=== PATIENT | female | born 1935 | race African-American/Black ===

== ENCOUNTER 2018-02-25 14:31 | Inpatient (IN) | payer MEDICARE, OTHER ==
[~2018-02-25] VITALS: Ht 167.6 cm; Wt 72.6 kg
[~2018-02-25 14:31] MED LIST: ACET1TAB14 PO; AMLO-79 PO; LORA-249 PO; METO5TAB86 PO
[2018-02-25] MEDS ORDERED: MORPHINE SULFATE 4 MG/ML CPJ (NOT FOR IM USE) IV STA (15:23)
[2018-02-25] MEDS ORDERED: ONDANSETRON HCL 4MG/2ML INJ IV STA (15:23)
[2018-02-25] MEDS ORDERED: SODIUM CHLORIDE 0.9% 1,000 ML IV ONE (15:23)
[2018-02-25 16:34] LABS: BASOPHILS % 0.8 % (0.0-2.0); EOSINOPHILS % 0.3 % (0.0-5.0); HEMATOCRIT. 33.8 % (36.0-48.0); HEMOGLOBIN. 10.4 g/dL (12.0-16.0); LYMPHOCYTES % 20.1 % (20.0-50.0); MEAN CORPUSCULAR HEMOGLOBIN 24.3 pg (28.0-32.0); MEAN CORPUSCULAR VOLUME 78.7 fL (81.0-99.0); MEAN PLATELET VOLUME 10.2 fl (7.4-10.4); MONOCYTES % 8.9 % (2.0-8.0); NEUTROPHILS % 69.9 % (40.0-76.0); PLATELET 170 x1000/uL (130-400); RED BLOOD CELL COUNT 4.29 mill/uL (4.2-5.4); RED CELL DISTRIBUTION WIDTH 20.2 % (11.6-14.6)
[2018-02-25 16:37] LABS: CHLORIDE 107 mEq/L (98-107)
[2018-02-25 16:45] LABS: PARTIAL THROMBOPLASTIN TIME 24.3 sec (23.4-31.0); PROTHROMBIN TIME 10.3 sec (9.1-11.1)
[2018-02-25] MEDS ORDERED: POTASSIUM CHLORIDE 20MEQ TABLET SR PO ONE (17:00)
[2018-02-25] MEDS ORDERED: ASPIRIN 325MG EC TABLET PO ONE (17:45)
[2018-02-25] MEDS ORDERED: SIMV40TA5 PO (21:19)
[2018-02-25 21:30] VITALS: BP 212/79
[2018-02-25] MEDS ORDERED: IPRATROPIUM/ALBUTEROL 0.5-3(2.5)MG/3ML NEB HHN PRN (22:30)
[2018-02-25] MEDS ORDERED: ACETAMINOPHEN 325MG TABLET PO PRN (22:30)
[2018-02-25] MEDS: HYDROCODONE/ACETAMINOPHEN 5/325MG TABLET PO PRN (22:59)
[2018-02-26] VITALS: BP 143/61
[2018-02-26] MEDS: PANTOPRAZOLE 40MG DR TABLET PO SCH (06:31)
[2018-02-26 07:13] LABS: CHLORIDE 108 mEq/L (98-107)
[2018-02-26 07:24] LABS: BASOPHILS % 0.8 % (0.0-2.0); EOSINOPHILS % 0.6 % (0.0-5.0); HEMATOCRIT. 32.7 % (36.0-48.0); HEMOGLOBIN. 9.9 g/dL (12.0-16.0); LYMPHOCYTES % 20.2 % (20.0-50.0); MEAN CORPUSCULAR HEMOGLOBIN 24.3 pg (28.0-32.0); MEAN PLATELET VOLUME 10.5 fl (7.4-10.4); MONOCYTES % 10.1 % (2.0-8.0); NEUTROPHILS % 68.3 % (40.0-76.0); PLATELET 151 x1000/uL (130-400); RED BLOOD CELL COUNT 4.09 mill/uL (4.2-5.4); RED CELL DISTRIBUTION WIDTH 20.7 % (11.6-14.6)
[2018-02-26 07:33] LABS: LDL CHOLESTEROL 116 mg/dL (5-100)
[2018-02-26 07:35] LABS: HDL CHOLESTEROL 66 mg/dL (40-59)
[2018-02-26 08:00] VITALS: BP 165/67
[2018-02-26] MEDS: ENOXAPARIN 40MG/0.4ML SYR SUBCUT SCH (08:09)
[2018-02-26] MEDS: CLONIDINE 0.1MG TABLET PO PRN (09:27)
[2018-02-26] MEDS ORDERED: METOPROLOL TARTRATE 25MG TABLET PO NR (11:15)
[2018-02-26] MEDS: HYDROCODONE/ACETAMINOPHEN 5/325MG TABLET PO PRN ×2 (11:31→18:20)
[2018-02-26 12:00] VITALS: BP 132/61
[2018-02-26 12:29] LABS: BG BASE EXCESS -0.7 mmol/L (-2.0-2.0); BG CARBOXYHEMOGLOBIN 0.5 % (0.5-1.5); BG DEOXYHEMOGLOBIN 4.5 % (0.0-5.0); BG FRACTION INSPIRED OXYGEN 21; BG HCO3 ACT 23.7 mmol/L (22.0-26.0); BG METHEMOGLOBIN 0.1 % (0.0-1.5); BG OXYGEN SATURATION 95.5 % (92.0-98.5); BG OXYHEMOGLOBIN 94.9 % (94.0-97.0); BG PCO2 37.8 mmHg (35.0-45.0); BG PH 7.415 (7.350-7.450); BG PO2 80.1 mmHg (75.0-100.0); BG SAMPLE SITE LEFT BRACHIAL; BG TOTAL HEMOGLOBIN 9.7 g/dL (12.0-18.0); BG VENT MODE ROOM AIR
[2018-02-26] MEDS ORDERED: LIDOCAINE HCL/PF 1% 2ML VIAL ONE (14:27)
[2018-02-26] MEDS ORDERED: GUAIFENESIN 200MG/10ML SUGAR FREE UDC PO PRN (15:45)
[2018-02-26] MEDS: AZITHROMYCIN 500 MG TABLET PO SCH (18:21)
[2018-02-26 20:00] VITALS: BP 139/61
[2018-02-26] MEDS: GUAIFENESIN 600MG ER TABLET PO SCH (20:37)
[2018-02-26] MEDS: METOPROLOL TARTRATE 25MG TABLET PO SCH (20:38)
[2018-02-26] MEDS ORDERED: ATORVASTATIN CALCIUM 40MG TABLET PO SCH (21:00)
[2018-02-27] VITALS: BP 161/69
[2018-02-27] MEDS: CLONIDINE 0.1MG TABLET PO PRN ×2 (00:42→18:39)
[2018-02-27] MEDS: HYDROCODONE/ACETAMINOPHEN 5/325MG TABLET PO PRN ×2 (00:44→08:39)
[2018-02-27 01:01] LABS: CLARITY URINE CLOUDY (CLEAR); COLOR URINE YELLOW (YELLOW); KETONES URINE TRACE (NEGATIVE); LEUKOCYTE ESTERASE URINE 2+ (NEGATIVE); NITRITE URINE NEGATIVE (NEGATIVE); OCCULT BLOOD URINE TRACE (NEGATIVE); PROTEIN URINE NEGATIVE (NEGATIVE); SPECIFIC GRAVITY URINE 1.024 (1.005-1.030); UROBILINOGEN URINE 0.2 E.U./dL (0.2-1.0)
[2018-02-27 01:12] LABS: *AMPHETAMINES SCREEN URINE NEGATIVE (NEGATIVE); *BARBITURATES SCREEN URINE NEGATIVE (NEGATIVE); *BENZODIAZEPINES SCREEN URINE NEGATIVE (NEGATIVE); *COCAINE SCREEN URINE NEGATIVE (NEGATIVE); METHADONE URINE SCREEN NEGATIVE (NEGATIVE)
[2018-02-27 01:13] LABS: CANNABINOID URINE SCREEN NEGATIVE (NEGATIVE); OPIATES URINE SCREEN PRESUMTIVE POSITIVE (NEGATIVE); PHENCYCLIDINE URINE SCREEN NEGATIVE (NEGATIVE)
[2018-02-27 04:00] VITALS: BP 162/74
[2018-02-27] MEDS: PANTOPRAZOLE 40MG DR TABLET PO SCH (06:34)
[2018-02-27 06:55] LABS: HEMATOCRIT 29.6 % (36.0-48.0); HEMOGLOBIN 9.1 g/dL (12.0-16.0); MEAN CORPUSCULAR HEMOGLOBIN 24.5 pg (28.0-32.0); MEAN CORPUSCULAR VOLUME 79.2 fL (81.0-99.0); PLATELET 139 x1000/uL (130-400); RED BLOOD CELL COUNT 3.74 mill/uL (4.2-5.4); RED CELL DISTRIBUTION WIDTH 20.7 % (11.6-14.6)
[2018-02-27 08:01] VITALS: BP 163/60
[2018-02-27 08:04] LABS: CHLORIDE 108 mEq/L (98-107)
[2018-02-27] MEDS: GUAIFENESIN 600MG ER TABLET PO SCH (08:35)
[2018-02-27] MEDS: AZITHROMYCIN 500 MG TABLET PO SCH (08:35)
[2018-02-27] MEDS: METOPROLOL TARTRATE 25MG TABLET PO SCH (08:36)
[2018-02-27] MEDS: ENOXAPARIN 40MG/0.4ML SYR SUBCUT SCH (08:38)
[2018-02-27] MEDS ORDERED: ASPIRIN 81MG TABLET PO SCH (09:00)
[2018-02-27] MEDS ORDERED: AMLODIPINE 5MG TABLET PO SCH (11:15)
[2018-02-27 11:41] VITALS: BP 153/60
[2018-02-27] MEDS ORDERED: LEVOFLOXACIN 500MG PREMIX 100 ML IV SCH (13:00)
[2018-02-27 14:08] LABS: TOTAL IRON BINDING CAPACITY 376 ug/dL (250-450)
[2018-02-27 16:02] VITALS: BP 181/64
[2018-02-27 18:17] VITALS: BP 159/65
== END 2018-02-27 19:30 | disposition home or self-care (01) | DRG 191 ==
LOC: ER 14:31 → 6WST 18:00 → EDBEDREQ 18:01 → ENRESERV 19:39
PROVIDERS: ADMIT Internal Medicine; ATTEND Internal Medicine
DX: J44.1 Chronic obstructive pulmonary disease with (acute) exacerbation (principal); C94.6 Myelodysplastic disease, not elsewhere classified; N39.0 Urinary tract infection, site not specified; I16.0 Hypertensive urgency; J06.9 Acute upper respiratory infection, unspecified; I11.9 Hypertensive heart disease without heart failure; M54.30 Sciatica, unspecified side; R73.9 Hyperglycemia, unspecified; E66.9 Obesity, unspecified; E86.0 Dehydration; E78.5 Hyperlipidemia, unspecified; D64.9 Anemia, unspecified; R07.89 Other chest pain; Z87.891 Personal history of nicotine dependence; Z85.3 Personal history of malignant neoplasm of breast; Z90.11 Acquired absence of right breast and nipple; Z98.84 Bariatric surgery status; Z90.3 Acquired absence of stomach [part of]; Z88.0 Allergy status to penicillin; Z68.25 Body mass index [BMI] 25.0-25.9, adult; Z79.899 Other long term (current) drug therapy
CPT/HCPCS: 36415; 36600; 71045; 71250; 78582; 80048; 80061; 80305; 82375; 82805; 83036; 83540; 83550; 83880; 84484; 85027; 85379; 86850; 86900; 87077; 87186; 93005; 93306; 93970; 96361; 96374; 96375; 99285; A9558; J1650; J1956; J2270; J2405; J3490; J7030

== ENCOUNTER 2023-07-02 11:20 | Inpatient (IN) | payer MEDICARE ==
[~2023-07-02] VITALS: Ht 162.6 cm; Wt 66.7 kg
[~2023-07-02 11:20] MED LIST changes: +AMLO-138 PO; -AMLO-79 PO; +APIX2.5T MT; +APIX5TAB MT; +FURO40TA5 PO; +MED4 MT; +METO-411 PO; -METO5TAB86 PO; +OMEP20CA14 PO; +SIMV-43 PO
[2023-07-02 12:50] LABS: HEMOGLOBIN. 7.3 g/dL (12.0-16.0); MEAN CORPUSCULAR HGB CONC 29.1 g/dL (31.0-37.0); MEAN CORPUSCULAR VOLUME 72.3 fL (81.0-99.0); MEAN PLATELET VOLUME 10.6 fl (7.4-10.4); PLATELET 250 x1000/uL (130-400); RED BLOOD CELL COUNT 3.46 mill/uL (4.2-5.4); WHITE BLOOD COUNT 9.7 x1000/uL (4.5-11.0)
[2023-07-02 12:51] LABS: DIFFERENTIAL COMMENT 1
[2023-07-02 12:54] LABS: INR 1.1; PROTHROMBIN TIME 12.1 sec (9.6-11.0)
[2023-07-02 12:55] LABS: CHLORIDE 102 mEq/L (98-107); POTASSIUM 5.9 mEq/L (3.5-5.1); SODIUM 134 mEq/L (136-145)
[2023-07-02 12:56] LABS: CALCIUM 9.6 mg/dL (8.7-10.4); CARBON DIOXIDE 22 mEq/L (21-32)
[2023-07-02 13:01] LABS: CREATININE 0.7 mg/dL (0.6-1.0); GLUCOSE 126 mg/dL (70-105); UREA NITROGEN BLOOD 11 mg/dL (9-23)
[2023-07-02 13:03] LABS: CREATINE KINASE 292 IU/L (34-145)
[2023-07-02 13:05] LABS: LACTIC ACID 2.2 mmol/L (0.4-2.0)
[2023-07-02 13:07] LABS: TROPONIN I HIGH SENSITIVITY 432 ng/L (3.0-34)
[2023-07-02] MEDS: ACETAMINOPHEN 325MG TABLET PO ONE (13:57)
[2023-07-02] MEDS: CEFTRIAXONE 1GM/50ML 50 ML IV ONE (13:57)
[2023-07-02] MEDS: SODIUM CHLORIDE 0.9% 1000ML BAG (SEPSIS BOLUS) IV ONE (13:58)
[2023-07-02 14:35] LABS: NUCLEATED RED BLOOD CELLS 2 /100 WBC
[2023-07-02 14:59] LABS: ANISOCYTOSIS 3+; PLATELET ESTIMATE NORMAL
[2023-07-02 15:00] LABS: HYPOCHROMASIA 1+; MICROCYTOSIS 2+
[2023-07-02] MEDS ORDERED: FUROSEMIDE 100MG/10ML VIAL IV NR (16:09)
[2023-07-02] MEDS: INSULIN REGULAR (HUMULIN R) 300UNITS/3ML VIAL IV NR (16:15)
[2023-07-02 16:35] LABS: ALANINE AMINOTRANSFERASE 12 IU/L (10-49); ASPARTATE AMINOTRANSFERASE 69 IU/L (<34); BILIRUBIN DIRECT 0.2 mg/dL (<=3.0); BILIRUBIN TOTAL 0.7 mg/dL (0.1-1.0); PROTEIN TOTAL 6.8 g/dL (6.0-8.3)
[2023-07-02] MEDS: FUROSEMIDE 40MG/4ML VIAL IV NR (17:08)
[2023-07-02] MEDS: ASPIRIN 325MG EC TABLET PO NR (17:08)
[2023-07-02] MEDS: SODIUM POLYSTYRENE SULFONATE 15 G/60 ML BOT PO NR (17:08)
[2023-07-02] MEDS: CALCIUM CHLORIDE 1GM/10ML SYR IV NR (17:09)
[2023-07-02] MEDS: SODIUM BICARBONATE 8.4% 1 MEQ/ML 50ML SYR IV NR (17:09)
[2023-07-02] MEDS: DEXTROSE 50% WATER 50ML SYRINGE IV NR (17:09)
[2023-07-02 17:55] VITALS: PULSE 114; RESP 24
[2023-07-02] MEDS: ALBUTEROL (0.083%) 2.5MG/3ML NEB HHN NR (17:55)
[2023-07-02 18:03] LABS: CLARITY URINE TURBID (CLEAR); COLOR URINE YELLOW (YELLOW); GLUCOSE URINE NEGATIVE (NEGATIVE); KETONES URINE 1+ (NEGATIVE); LEUKOCYTE ESTERASE URINE 2+ (NEGATIVE); NITRITE URINE POSITIVE (NEGATIVE); OCCULT BLOOD URINE TRACE (NEGATIVE); PH URINE 5.5 (4.5-8.0); PROTEIN URINE TRACE (NEGATIVE); SPECIFIC GRAVITY URINE 1.019 (1.005-1.030); UROBILINOGEN URINE 0.2 E.U./dL (0.2-1.0)
[2023-07-02] MEDS: ENOXAPARIN 80MG/0.8ML SYR SUBCUT SCH (18:30)
[2023-07-02 19:08] LABS: BACTERIA URINE 3+; SQUAMOUS EPITHELIAL CELL URINE 1+ /lpf (RARE/1+)
[2023-07-02 19:09] LABS: RBC URINE 0-2 /hpf (0-2); WBC URINE 25-50 /hpf (0-2)
[2023-07-02 20:00] VITALS: BP 156/72; PULSE 88; RESP 18; TEMP 98.7
[2023-07-03] VITALS: BP 163/57; PULSE 86; RESP 17; TEMP 97.5
[2023-07-03 04:00] VITALS: BP 156/75; PULSE 88; RESP 18; TEMP 97.6
[2023-07-03] MEDS ORDERED: IPRATROPIUM/ALBUTEROL 0.5-3(2.5)MG/3ML NEB HHN PRN (07:45)
[2023-07-03 08:00] VITALS: BP 138/56; PULSE 101; RESP 18; TEMP 98.1
[2023-07-03] MEDS ORDERED: NALOXONE HCL 0.4MG/ML VIAL IV PRN (08:00)
[2023-07-03] MEDS: ASPIRIN 81MG EC TABLET PO SCH (08:35)
[2023-07-03 11:02] LABS: CARBON DIOXIDE 23 mEq/L (21-32); CHLORIDE 104 mEq/L (98-107); POTASSIUM 3.9 mEq/L (3.5-5.1); SODIUM 134 mEq/L (136-145)
[2023-07-03 11:07] LABS: CREATININE 0.6 mg/dL (0.6-1.0)
[2023-07-03 11:08] LABS: GLUCOSE 122 mg/dL (70-105); UREA NITROGEN BLOOD 6 mg/dL (9-23)
[2023-07-03 11:09] LABS: ALANINE AMINOTRANSFERASE < 7 IU/L (10-49); ALBUMIN 3.1 g/dL (3.2-4.8); ASPARTATE AMINOTRANSFERASE 24 IU/L (<34)
[2023-07-03 11:10] LABS: BILIRUBIN TOTAL 0.6 mg/dL (0.1-1.0); CREATINE KINASE 85 IU/L (34-145); PROTEIN TOTAL 5.5 g/dL (6.0-8.3)
[2023-07-03 11:29] LABS: TROPONIN I HIGH SENSITIVITY 390 ng/L (3.0-34)
[2023-07-03] MEDS: HYDROCODONE/ACETAMINOPHEN 5/325MG TABLET PO PRN (11:59)
[2023-07-03 12:00] VITALS: BP 140/65; PULSE 108; RESP 18; TEMP 97.8
[2023-07-03] MEDS: FUROSEMIDE 40MG/4ML VIAL IVP SCH (13:15)
[2023-07-03] MEDS: CEFTRIAXONE 1GM/50ML 50 ML IV SCH (13:18)
[2023-07-03 16:00] VITALS: BP 149/80; PULSE 114; RESP 18; TEMP 97.6
[2023-07-03 16:30] LABS: MEAN CORPUSCULAR HEMOGLOBIN 21.7 pg (28.0-32.0); MEAN CORPUSCULAR HGB CONC 30.3 g/dL (31.0-37.0); MEAN CORPUSCULAR VOLUME 71.7 fL (81.0-99.0); MEAN PLATELET VOLUME 10.5 fl (7.4-10.4); PLATELET 201 x1000/uL (130-400); RED BLOOD CELL COUNT 3.03 mill/uL (4.2-5.4); RED CELL DISTRIBUTION WIDTH 23.2 % (11.6-14.6); WHITE BLOOD COUNT 8.1 x1000/uL (4.5-11.0)
[2023-07-03 16:31] LABS: DIFFERENTIAL COMMENT 1
[2023-07-03 16:37] LABS: HEMATOCRIT. 21.8 % (36.0-48.0); HEMOGLOBIN. 6.6 g/dL (12.0-16.0)
[2023-07-03 17:12] LABS: HYPOCHROMASIA 2+; MICROCYTOSIS 2+; PLATELET ESTIMATE NORMAL
[2023-07-03 17:13] LABS: ANISOCYTOSIS 2+
[2023-07-03 20:00] VITALS: BP 136/55; PULSE 60; RESP 18; TEMP 99.3
[2023-07-03] MEDS: CARVEDILOL 3.125 MG TABLET PO SCH (21:15)
[2023-07-04] VITALS (12 sets, daily range): BP systolic 114–145; BP diastolic 53–69; PULSE 81–104; RESP 17–20; TEMP 97.1–98.1
[2023-07-04] MEDS: ACETAMINOPHEN 325MG TABLET PO PRN (07:41)
[2023-07-04] MEDS: PANTOPRAZOLE SODIUM 40 MG/VIAL IV SCH (10:45)
[2023-07-04 12:49] LABS: HEMATOCRIT. 27.1 % (36.0-48.0); MEAN CORPUSCULAR HEMOGLOBIN 22.1 pg (28.0-32.0); MEAN CORPUSCULAR HGB CONC 29.7 g/dL (31.0-37.0); MEAN CORPUSCULAR VOLUME 74.2 fL (81.0-99.0); MEAN PLATELET VOLUME 10.4 fl (7.4-10.4); PLATELET 160 x1000/uL (130-400); RED BLOOD CELL COUNT 3.65 mill/uL (4.2-5.4); RED CELL DISTRIBUTION WIDTH 23.2 % (11.6-14.6); WHITE BLOOD COUNT 7.3 x1000/uL (4.5-11.0)
[2023-07-04 12:55] LABS: DIFFERENTIAL COMMENT 1
[2023-07-04 13:33] LABS: CHLORIDE 103 mEq/L (98-107); POTASSIUM 3.1 mEq/L (3.5-5.1); SODIUM 135 mEq/L (136-145)
[2023-07-04 13:34] LABS: CARBON DIOXIDE 25 mEq/L (21-32)
[2023-07-04 13:35] LABS: CALCIUM 8.6 mg/dL (8.7-10.4)
[2023-07-04 13:39] LABS: CREATININE 0.7 mg/dL (0.6-1.0); GLUCOSE 106 mg/dL (70-105); IRON 269 ug/dL (50-170); UREA NITROGEN BLOOD 10 mg/dL (9-23)
[2023-07-04 13:42] LABS: TOTAL IRON BINDING CAPACITY 230 ug/dl (250-425)
[2023-07-04] MEDS: POTASSIUM CHLORIDE 20MEQ TABLET SR PO NR (15:00)
[2023-07-04 15:39] LABS: ANISOCYTOSIS 2+; HYPOCHROMASIA 1+; MICROCYTOSIS 2+; PLATELET ESTIMATE NORMAL
[2023-07-04 16:12] LABS: FOLIC ACID (FOLATE) SERUM > 20.00 ng/mL (>5.38); VITAMIN B12 SERUM 874 pg/mL (211-911)
[2023-07-04 16:13] LABS: FERRITIN 9 ng/mL (10-291)
[2023-07-05] VITALS: BP 152/90; PULSE 99; RESP 17; TEMP 97.5
[2023-07-05] MEDS: MAGNESIUM 4 G PREMIX 100 ML IV NR (01:35)
[2023-07-05 04:00] VITALS: BP 146/65; PULSE 85; RESP 17; TEMP 97.8
[2023-07-05 07:20] LABS: CARBON DIOXIDE 28 mEq/L (21-32); CHLORIDE 102 mEq/L (98-107); POTASSIUM 3.3 mEq/L (3.5-5.1); SODIUM 137 mEq/L (136-145)
[2023-07-05 07:21] LABS: CALCIUM 8.6 mg/dL (8.7-10.4)
[2023-07-05 07:25] LABS: CREATININE 0.6 mg/dL (0.6-1.0)
[2023-07-05 07:26] LABS: GLUCOSE 112 mg/dL (70-105); UREA NITROGEN BLOOD 11 mg/dL (9-23)
[2023-07-05 07:30] LABS: PROTHROMBIN TIME 11.4 sec (9.6-11.0)
[2023-07-05 08:00] VITALS: BP 135/67; PULSE 97; RESP 18; TEMP 97.4
[2023-07-05 08:03] LABS: HEMATOCRIT. 25.9 % (36.0-48.0); HEMOGLOBIN. 7.8 g/dL (12.0-16.0); MEAN CORPUSCULAR HEMOGLOBIN 21.7 pg (28.0-32.0); MEAN CORPUSCULAR VOLUME 72.5 fL (81.0-99.0); MEAN PLATELET VOLUME 9.8 fl (7.4-10.4); PLATELET 153 x1000/uL (130-400); RED BLOOD CELL COUNT 3.58 mill/uL (4.2-5.4); RED CELL DISTRIBUTION WIDTH 23.4 % (11.6-14.6); WHITE BLOOD COUNT 7.8 x1000/uL (4.5-11.0)
[2023-07-05 08:40] LABS: DIFFERENTIAL COMMENT 1
[2023-07-05] MEDS: FUROSEMIDE 20MG TABLET PO SCH (09:10)
[2023-07-05] MEDS: KCL 20MEQ/100ML PREMIX 100 ML IV NR (11:32)
[2023-07-05] MEDS ORDERED: ONDANSETRON HCL 4MG/2ML INJ IV PRN (15:30)
[2023-07-05] MEDS ORDERED: LABETALOL 5MG/ML 4ML INJ IV PRN (15:30)
[2023-07-05] MEDS ORDERED: MEPERIDINE HCL/PF 25MG/ML CPJ IV PRN (15:30)
[2023-07-05] MEDS ORDERED: HYDROMORPHONE HCL/PF 2MG/ML CPJ IV PRN (15:30)
[2023-07-05 16:00] VITALS: BP 153/69; PULSE 85; RESP 18; TEMP 97.9
[2023-07-05 20:00] VITALS: BP 132/64; PULSE 87; RESP 18; TEMP 97.5
[2023-07-05 23:04] LABS: PLATELET ESTIMATE NORMAL
[2023-07-05 23:05] LABS: ANISOCYTOSIS 2+; HYPOCHROMASIA 2+; MICROCYTOSIS 2+
[2023-07-06] VITALS: PULSE 89; RESP 18; TEMP 97.6
[2023-07-06 04:00] VITALS: BP_SYST 122; BP_SYST 141; BP_DIAS 67; BP_DIAS 75; PULSE 96; RESP 18; TEMP 97.5; TEMP 98
[2023-07-06 06:33] LABS: HEMATOCRIT. 28.2 % (36.0-48.0); HEMOGLOBIN. 8.8 g/dL (12.0-16.0); MEAN CORPUSCULAR HEMOGLOBIN 22.7 pg (28.0-32.0); MEAN CORPUSCULAR HGB CONC 31.1 g/dL (31.0-37.0); MEAN CORPUSCULAR VOLUME 72.9 fL (81.0-99.0); MEAN PLATELET VOLUME 9.7 fl (7.4-10.4); PLATELET 167 x1000/uL (130-400); RED BLOOD CELL COUNT 3.87 mill/uL (4.2-5.4); RED CELL DISTRIBUTION WIDTH 24.1 % (11.6-14.6)
[2023-07-06 06:50] LABS: DIFFERENTIAL COMMENT 1
[2023-07-06 06:59] LABS: CHLORIDE 100 mEq/L (98-107); SODIUM 137 mEq/L (136-145)
[2023-07-06 07:00] LABS: CARBON DIOXIDE 31 mEq/L (21-32)
[2023-07-06 07:01] LABS: CALCIUM 8.8 mg/dL (8.7-10.4)
[2023-07-06 07:05] LABS: CREATININE 0.6 mg/dL (0.6-1.0); GLUCOSE 101 mg/dL (70-105)
[2023-07-06 07:06] LABS: UREA NITROGEN BLOOD 7 mg/dL (9-23)
[2023-07-06 08:00] VITALS: BP 137/65; PULSE 88; RESP 18; TEMP 97.7
[2023-07-06] MEDS: POTASSIUM CHLORIDE 20MEQ TABLET SR PO NR (10:23)
[2023-07-06 12:00] VITALS: BP 130/54; PULSE 82; RESP 18; TEMP 98.1
[2023-07-06 15:24] LABS: GIANT PLATELETS 1+; HYPOCHROMASIA 2+; MICROCYTOSIS 2+; PLATELET ESTIMATE NORMAL
[2023-07-06 16:00] VITALS: BP 123/59; PULSE 100; RESP 18; TEMP 97.3
[2023-07-06 20:00] VITALS: BP 139/66; PULSE 96; RESP 16; TEMP 98.4
[2023-07-07] VITALS (11 sets, daily range): BP systolic 114–142; BP diastolic 41–61; PULSE 69–96; RESP 17–20; TEMP 97.2–98.4
[2023-07-07 06:31] LABS: MEAN CORPUSCULAR HEMOGLOBIN 22.5 pg (28.0-32.0); MEAN CORPUSCULAR HGB CONC 30.4 g/dL (31.0-37.0); MEAN CORPUSCULAR VOLUME 74.2 fL (81.0-99.0); PLATELET 143 x1000/uL (130-400); RED BLOOD CELL COUNT 2.97 mill/uL (4.2-5.4); RED CELL DISTRIBUTION WIDTH 23.9 % (11.6-14.6); WHITE BLOOD COUNT 6.3 x1000/uL (4.5-11.0)
[2023-07-07 06:50] LABS: CARBON DIOXIDE 31 mEq/L (21-32); CHLORIDE 100 mEq/L (98-107); POTASSIUM 3.3 mEq/L (3.5-5.1); SODIUM 137 mEq/L (136-145)
[2023-07-07 06:51] LABS: CALCIUM 8.7 mg/dL (8.7-10.4)
[2023-07-07 06:56] LABS: CREATININE 0.5 mg/dL (0.6-1.0); GLUCOSE 109 mg/dL (70-105); UREA NITROGEN BLOOD 11 mg/dL (9-23)
[2023-07-07 07:57] LABS: DIFFERENTIAL COMMENT 1
[2023-07-07 07:59] LABS: HEMOGLOBIN. 6.7 g/dL (12.0-16.0)
[2023-07-07] MEDS: POTASSIUM CHLORIDE 20MEQ TABLET SR PO NR (09:23)
[2023-07-07] MEDS: MAGNESIUM 2 G PREMIX 50 ML IV NR (10:57)
[2023-07-07 14:51] LABS: HYPOCHROMASIA 2+; MICROCYTOSIS 2+; PLATELET ESTIMATE NORMAL
[2023-07-07 18:49] LABS: HEMOGLOBIN 8.8 g/dL (12.0-16.0); MEAN CORPUSCULAR HEMOGLOBIN 23.5 pg (28.0-32.0); MEAN CORPUSCULAR HGB CONC 30.4 g/dL (31.0-37.0); MEAN CORPUSCULAR VOLUME 77.2 fL (81.0-99.0); PLATELET 153 x1000/uL (130-400); RED BLOOD CELL COUNT 3.75 mill/uL (4.2-5.4); RED CELL DISTRIBUTION WIDTH 24.5 % (11.6-14.6); WHITE BLOOD COUNT 8.3 x1000/uL (4.5-11.0)
[2023-07-08] VITALS: BP 129/51; PULSE 90; RESP 17; TEMP 97.1
[2023-07-08] MEDS: ONDANSETRON HCL 4MG/2ML INJ IV PRN (02:42)
[2023-07-08 04:00] VITALS: BP 137/63; PULSE 92; RESP 20; TEMP 97.2
[2023-07-08 08:00] VITALS: BP 140/65; PULSE 82; RESP 18; TEMP 98.6
[2023-07-08 12:00] VITALS: BP 141/63; PULSE 75; RESP 16; TEMP 97.9
[2023-07-08] MEDS: LOPERAMIDE HCL 2MG CAPSULE PO PRN (14:51)
[2023-07-08 16:00] VITALS: BP 135/57; PULSE 88; RESP 18; TEMP 98.6
[2023-07-08 16:22] LABS: CHLORIDE 102 mEq/L (98-107); POTASSIUM 3.9 mEq/L (3.5-5.1); SODIUM 136 mEq/L (136-145)
[2023-07-08 16:23] LABS: CALCIUM 8.8 mg/dL (8.7-10.4); CARBON DIOXIDE 29 mEq/L (21-32)
[2023-07-08 16:28] LABS: CREATININE 0.7 mg/dL (0.6-1.0); GLUCOSE 103 mg/dL (70-105); UREA NITROGEN BLOOD 7 mg/dL (9-23)
[2023-07-08 16:31] LABS: HEMATOCRIT. 30.4 % (36.0-48.0); HEMOGLOBIN. 9.2 g/dL (12.0-16.0); MEAN CORPUSCULAR HEMOGLOBIN 23.6 pg (28.0-32.0); MEAN CORPUSCULAR HGB CONC 30.4 g/dL (31.0-37.0); MEAN CORPUSCULAR VOLUME 77.7 fL (81.0-99.0); MEAN PLATELET VOLUME 9.5 fl (7.4-10.4); PLATELET 85 x1000/uL (130-400); RED BLOOD CELL COUNT 3.92 mill/uL (4.2-5.4); RED CELL DISTRIBUTION WIDTH 24.8 % (11.6-14.6); WHITE BLOOD COUNT 9.9 x1000/uL (4.5-11.0)
[2023-07-08 16:33] LABS: DIFFERENTIAL COMMENT 1
[2023-07-08 20:00] VITALS: BP 139/60; PULSE 90; RESP 18; TEMP 96.8
[2023-07-08 20:25] LABS: ANISOCYTOSIS 2+; PLATELET ESTIMATE DECREASED
[2023-07-08 20:26] LABS: HYPOCHROMASIA 2+; MICROCYTOSIS 2+
[2023-07-09] VITALS: BP 132/60; PULSE 99; RESP 17; TEMP 97.1
[2023-07-09 04:00] VITALS: BP 139/72; PULSE 81; RESP 19; TEMP 96.8
[2023-07-09 08:00] VITALS: BP 151/67; PULSE 82; RESP 18; TEMP 98.4
[2023-07-09 12:00] VITALS: BP 141/57; PULSE 94; RESP 16; TEMP 98.4
[2023-07-09 16:00] VITALS: BP 142/69; PULSE 92; RESP 20; TEMP 97
[2023-07-09 16:39] LABS: HEMATOCRIT. 29.8 % (36.0-48.0); HEMOGLOBIN. 8.8 g/dL (12.0-16.0); MEAN CORPUSCULAR HEMOGLOBIN 23.4 pg (28.0-32.0); MEAN CORPUSCULAR HGB CONC 29.4 g/dL (31.0-37.0); MEAN CORPUSCULAR VOLUME 79.7 fL (81.0-99.0); MEAN PLATELET VOLUME 11.1 fl (7.4-10.4); PLATELET 128 x1000/uL (130-400); RED BLOOD CELL COUNT 3.74 mill/uL (4.2-5.4); WHITE BLOOD COUNT 8.4 x1000/uL (4.5-11.0)
[2023-07-09 16:45] LABS: DIFFERENTIAL COMMENT 1
[2023-07-09 16:50] LABS: CARBON DIOXIDE 25 mEq/L (21-32)
[2023-07-09 16:51] LABS: CALCIUM 9.7 mg/dL (8.7-10.4)
[2023-07-09 16:56] LABS: CREATININE 0.6 mg/dL (0.6-1.0); GLUCOSE 95 mg/dL (70-105); UREA NITROGEN BLOOD 7 mg/dL (9-23)
[2023-07-09 17:00] LABS: CHLORIDE 103 mEq/L (98-107); POTASSIUM 3.7 mEq/L (3.5-5.1); SODIUM 135 mEq/L (136-145)
[2023-07-09 17:32] LABS: ANISOCYTOSIS 2+; HYPOCHROMASIA 1+; MICROCYTOSIS 1+; PLATELET ESTIMATE DECREASED
[2023-07-09 20:00] VITALS: BP 131/56; PULSE 97; RESP 17; TEMP 99.9
[2023-07-10] VITALS: BP 159/57; PULSE 101; RESP 17; TEMP 95.9
[2023-07-10 04:00] VITALS: BP 133/56; PULSE 91; RESP 18; TEMP 98.1
[2023-07-10 06:26] LABS: HEMATOCRIT. 25.6 % (36.0-48.0); HEMOGLOBIN. 7.8 g/dL (12.0-16.0); MEAN CORPUSCULAR HEMOGLOBIN 23.5 pg (28.0-32.0); MEAN CORPUSCULAR HGB CONC 30.6 g/dL (31.0-37.0); MEAN CORPUSCULAR VOLUME 76.6 fL (81.0-99.0); MEAN PLATELET VOLUME 10.8 fl (7.4-10.4); PLATELET 123 x1000/uL (130-400); RED BLOOD CELL COUNT 3.34 mill/uL (4.2-5.4); RED CELL DISTRIBUTION WIDTH 24.6 % (11.6-14.6); WHITE BLOOD COUNT 6.7 x1000/uL (4.5-11.0)
[2023-07-10 06:31] LABS: CARBON DIOXIDE 29 mEq/L (21-32); CHLORIDE 103 mEq/L (98-107); POTASSIUM 4.1 mEq/L (3.5-5.1); SODIUM 138 mEq/L (136-145)
[2023-07-10 06:36] LABS: DIFFERENTIAL COMMENT 1
[2023-07-10 06:37] LABS: CREATININE 0.7 mg/dL (0.6-1.0); GLUCOSE 95 mg/dL (70-105); UREA NITROGEN BLOOD 11 mg/dL (9-23)
[2023-07-10 08:00] VITALS: BP 149/66; PULSE 94; RESP 18; TEMP 97.7
[2023-07-10 12:00] VITALS: BP 141/67; PULSE 88; RESP 20; TEMP 97.6
[2023-07-10] MEDS ORDERED: FURO-152 MT (14:13)
[2023-07-10] MEDS ORDERED: VANC125C11 MT (14:28)
[2023-07-10 14:45] VITALS: BP 141/67; PULSE 88; TEMP 97.6; O2SAT 100
[2023-07-10 16:00] VITALS: BP 142/61; PULSE 91; RESP 18; TEMP 98
[2023-07-10] MEDS ORDERED: VANCOMYCIN 250MG/5ML ORAL SYRINGE PO SCH (18:00)
[2023-07-10 21:14] LABS: ANISOCYTOSIS 2+; HYPOCHROMASIA 1+; MICROCYTOSIS 1+; PLATELET ESTIMATE DECREASED
== END 2023-07-10 17:45 | disposition home health service (06) | DRG 377 ==
LOC: ER 12:13 → 8WST 16:13 → EDBEDREQ 16:21 → EDBEDREQTM 16:21
PROVIDERS: ADMIT Internal Medicine; ATTEND Internal Medicine
PROC: 30233N1 Transfusion of Nonautologous Red Blood Cells into Peripheral Vein, Percutaneous Approach (ICD-10-PCS; principal; 2023-07-04)
PROC: 0W3P8ZZ Control Bleeding in Gastrointestinal Tract, Via Natural or Artificial Opening Endoscopic (ICD-10-PCS; 2023-07-05)
DX: K31.811 Angiodysplasia of stomach and duodenum with bleeding (principal); I21.4 Non-ST elevation (NSTEMI) myocardial infarction; I42.9 Cardiomyopathy, unspecified; N39.0 Urinary tract infection, site not specified; D50.0 Iron deficiency anemia secondary to blood loss (chronic); K29.71 Gastritis, unspecified, with bleeding; E66.9 Obesity, unspecified; E78.5 Hyperlipidemia, unspecified; I07.1 Rheumatic tricuspid insufficiency; I11.0 Hypertensive heart disease with heart failure; I50.9 Heart failure, unspecified; J44.9 Chronic obstructive pulmonary disease, unspecified; K44.9 Diaphragmatic hernia without obstruction or gangrene; Z68.25 Body mass index [BMI] 25.0-25.9, adult; Y92.009 Unspecified place in unspecified non-institutional (private) residence as the place of occurrence of the external cause; Z85.3 Personal history of malignant neoplasm of breast; Z86.718 Personal history of other venous thrombosis and embolism; Z87.891 Personal history of nicotine dependence; Z90.3 Acquired absence of stomach [part of]; Z95.828 Presence of other vascular implants and grafts; Z90.11 Acquired absence of right breast and nipple; Z86.711 Personal history of pulmonary embolism; E87.5 Hyperkalemia
CPT/HCPCS: 36415; 71045; 71250; 74176; 80048; 80053; 80076; 81003; 82270; 82550; 82607; 82728; 82746; 83540; 83550; 83605; 83735; 83880; 84145; 84484; 85025; 85027; 85044; 86850; 86900; 86920; 87015; 87045; 87177; 87209; 87427; 87449; 89055; 93005; 93306; 94640; 97162; 97166; 97530; 99291; C1893; C9113; J0696; J1650; J1815; J1940; J2405; J3475; J3480; J3490; J7030; P9016

== ENCOUNTER 2023-07-28 11:19 | Inpatient (IN) | payer MEDICARE ==
[~2023-07-28] VITALS: Ht 162.6 cm; Wt 73.0 kg
[~2023-07-28 11:19] MED LIST changes: -APIX2.5T MT; -APIX5TAB MT; +FURO-152 MT; -FURO40TA5 PO; +LEVO750T68 MT; -MED4 MT; +OMEP40CA20 MT; +SUCR1TAB30 MT
[2023-07-28] MEDS: SODIUM CHLORIDE 0.9% 1,000 ML IV ONE (12:15)
[2023-07-28] MEDS: FAMOTIDINE 20MG/2ML VIAL IV ONE (12:15)
[2023-07-28] MEDS ORDERED: PANTOPRAZOLE 80 MG in SODIUM CHLORIDE 0.9% 100 ML IV SCH (12:45)
[2023-07-28] MEDS: OXYCODONE HCL/ACETAMINOPHEN 5/325MG TABLET PO ONE (13:23)
[2023-07-28] MEDS ORDERED: DIPHENHYDRAMINE 50MG/ML VIAL IV PRN (13:30)
[2023-07-28] MEDS ORDERED: ACETAMINOPHEN 650MG SUPP PR PRN (13:30)
[2023-07-28] MEDS ORDERED: NALOXONE HCL 0.4MG/ML VIAL IV PRN (13:30)
[2023-07-28] MEDS: PANTOPRAZOLE 80 MG in SODIUM CHLORIDE 0.9% 100 ML IV SCH (13:50)
[2023-07-28 14:14] LABS: CARBON DIOXIDE 27 mEq/L (21-32); CHLORIDE 106 mEq/L (98-107); SODIUM 140 mEq/L (136-145)
[2023-07-28 14:15] LABS: CALCIUM 8.9 mg/dL (8.7-10.4)
[2023-07-28 14:17] LABS: EOSINOPHILS % 0.7 % (0.0-5.0); LYMPHOCYTES % 29.9 % (20.0-50.0); MEAN CORPUSCULAR HEMOGLOBIN 23.7 pg (28.0-32.0); MEAN CORPUSCULAR HGB CONC 30.2 g/dL (31.0-37.0); MEAN CORPUSCULAR VOLUME 78.3 fL (81.0-99.0); MEAN PLATELET VOLUME 10.2 fl (7.4-10.4); MONOCYTES % 10.1 % (2.0-8.0); NEUTROPHILS % 58.3 % (40.0-76.0); PLATELET 178 x1000/uL (130-400); PROTHROMBIN TIME 11.4 sec (9.6-11.0); RED BLOOD CELL COUNT 2.96 mill/uL (4.2-5.4); WHITE BLOOD COUNT 6.5 x1000/uL (4.5-11.0)
[2023-07-28 14:18] LABS: DIFFERENTIAL COMMENT 1
[2023-07-28 14:20] LABS: ADD RBC MORPHOLOGY YES; GLUCOSE 99 mg/dL (70-105); HEMATOCRIT. 23.2 % (36.0-48.0); UREA NITROGEN BLOOD 10 mg/dL (9-23)
[2023-07-28 14:21] LABS: CREATININE 0.5 mg/dL (0.6-1.0)
[2023-07-28 14:22] LABS: POTASSIUM 2.4 mEq/L (3.5-5.1); TROPONIN I HIGH SENSITIVITY 38 ng/L (3.0-34)
[2023-07-28 14:43] LABS: ANISOCYTOSIS 4+; MICROCYTOSIS 1+; PLATELET ESTIMATE NORMAL
[2023-07-28 14:44] LABS: HYPOCHROMASIA 1+
[2023-07-28 16:00] VITALS: PULSE 97; RESP 18; O2SAT 97
[2023-07-28] MEDS: IPRATROPIUM BROMIDE (0.02%) 0.5MG/2.5ML NEB HHN SCH (16:00)
[2023-07-28] MEDS: BUDESONIDE 0.5MG/2ML NEB HHN SCH (16:00)
[2023-07-28 17:44] LABS: TROPONIN I HIGH SENSITIVITY 39 ng/L (3.0-34)
[2023-07-28] MEDS: KCL 20MEQ/100ML PREMIX 100 ML IV SCH (17:46)
[2023-07-28] MEDS: MORPHINE SULFATE 2 MG/ML CPJ (NOT FOR IM USE) IV PRN (18:35)
[2023-07-28 19:24] LABS: TROPONIN I HIGH SENSITIVITY 46 ng/L (3.0-34)
[2023-07-28] MEDS: DEXT 5% WATER + KCL 20MEQ/L 1,000 ML IV SCH (21:35)
[2023-07-28 23:00] VITALS: BP 148/69; PULSE 110; RESP 18; TEMP 98.5
[2023-07-28 23:16] VITALS: BP 148/69; PULSE 110; RESP 20; TEMP 98.5
[2023-07-29] VITALS (15 sets, daily range): BP systolic 104–190; BP diastolic 62–149; PULSE 93–127; RESP 15–44; TEMP 97.5–98.5; O2SAT 97
[2023-07-29] MEDS: ONDANSETRON HCL 4MG/2ML INJ IV PRN (01:47)
[2023-07-29 05:37] LABS: POTASSIUM 2.9 mEq/L (3.5-5.1)
[2023-07-29] MEDS: BUDESONIDE 0.5MG/2ML NEB HHN SCH (08:10)
[2023-07-29] MEDS ORDERED: LIDOCAINE HCL 1% 10 MG/ML 10ML VIAL ONE (08:47)
[2023-07-29 10:22] LABS: HEMATOCRIT 29.6 % (36.0-48.0)
[2023-07-29] MEDS: KCL 20MEQ/100ML PREMIX 100 ML IV SCH (11:12)
[2023-07-29] MEDS ORDERED: DILTIAZEM HCL 125 MG in DEXT 5% WATER 100 ML IV PRN (19:10)
[2023-07-29] MEDS: DILTIAZEM HCL 5MG/ML 5ML VIAL IV NR (19:18)
[2023-07-29] MEDS: DILTIAZEM HCL 125 MG in DEXT 5% WATER 100 ML IV PRN (19:52)
[2023-07-29] MEDS: IPRATROPIUM BROMIDE (0.02%) 0.5MG/2.5ML NEB HHN SCH (20:20)
[2023-07-29 21:40] LABS: POTASSIUM 3.2 mEq/L (3.5-5.1)
[2023-07-30] VITALS (19 sets, daily range): BP systolic 92–169; BP diastolic 54–90; PULSE 82–138; RESP 13–33; TEMP 97–98; O2SAT 95–97
[2023-07-30 05:04] LABS: BASOPHILS % 0.7 % (0.0-2.0); EOSINOPHILS % 0.4 % (0.0-5.0); HEMATOCRIT. 30.8 % (36.0-48.0); HEMOGLOBIN. 9.4 g/dL (12.0-16.0); LYMPHOCYTES % 12.8 % (20.0-50.0); MEAN CORPUSCULAR HEMOGLOBIN 24.3 pg (28.0-32.0); MEAN CORPUSCULAR HGB CONC 30.5 g/dL (31.0-37.0); MEAN CORPUSCULAR VOLUME 79.8 fL (81.0-99.0); MEAN PLATELET VOLUME 10.2 fl (7.4-10.4); MONOCYTES % 7.2 % (2.0-8.0); NEUTROPHILS % 78.9 % (40.0-76.0); PLATELET 206 x1000/uL (130-400); RED BLOOD CELL COUNT 3.86 mill/uL (4.2-5.4); WHITE BLOOD COUNT 13.5 x1000/uL (4.5-11.0)
[2023-07-30 05:08] LABS: CHLORIDE 105 mEq/L (98-107); POTASSIUM 3.5 mEq/L (3.5-5.1); SODIUM 136 mEq/L (136-145)
[2023-07-30 05:09] LABS: CARBON DIOXIDE 25 mEq/L (21-32)
[2023-07-30 05:14] LABS: CREATININE 0.6 mg/dL (0.6-1.0); GLUCOSE 137 mg/dL (70-105); UREA NITROGEN BLOOD 7 mg/dL (9-23)
[2023-07-30 06:19] LABS: PROTHROMBIN TIME 11.2 sec (9.6-11.0)
[2023-07-30 07:15] LABS: DIFFERENTIAL COMMENT 1
[2023-07-30] MEDS: IPRATROPIUM/ALBUTEROL 0.5-3(2.5)MG/3ML NEB NEB PRN (10:25)
[2023-07-30] MEDS: METHYLPREDNISOLONE SOD SUCC 40MG/ML (ACT-O-VIAL) IV SCH (11:05)
[2023-07-30 11:26] LABS: BG BASE EXCESS -0.9 mmol/L (-2.0-2.0); BG CARBOXYHEMOGLOBIN 0.4 % (0.5-1.5); BG DEOXYHEMOGLOBIN 6.5 % (0.0-5.0); BG FRACTION INSPIRED OXYGEN 40; BG HCO3 ACT 23.2 mmol/L (22.0-26.0); BG METHEMOGLOBIN 0.4 % (0.0-1.5); BG OXYGEN SATURATION 93.4 % (92.0-98.5); BG OXYHEMOGLOBIN 92.7 % (94.0-97.0); BG PCO2 36.3 mmHg (35.0-45.0); BG PH 7.423 (7.350-7.450); BG PO2 71.6 mmHg (75.0-100.0); BG SAMPLE SITE LEFT RADIAL; BG TOTAL HEMOGLOBIN 11.2 g/dL (12.0-18.0); BG VENT MODE MASK - BIPAP
[2023-07-30] MEDS: DEXT 5% WATER + KCL 20MEQ/L 1,000 ML IV SCH (20:55)
[2023-07-30] MEDS: DILTIAZEM HCL 125 MG in DEXT 5% WATER 100 ML IV SCH (20:55)
[2023-07-31] VITALS (23 sets, daily range): BP systolic 80–135; BP diastolic 46–95; PULSE 78–103; RESP 12–32; TEMP 97.1–97.5; O2SAT 98–100
[2023-07-31 05:53] LABS: CHLORIDE 102 mEq/L (98-107); POTASSIUM 4.1 mEq/L (3.5-5.1); SODIUM 134 mEq/L (136-145)
[2023-07-31 05:54] LABS: CALCIUM 9.3 mg/dL (8.7-10.4); CARBON DIOXIDE 25 mEq/L (21-32)
[2023-07-31 05:59] LABS: CREATININE 0.6 mg/dL (0.6-1.0); GLUCOSE 194 mg/dL (70-105); UREA NITROGEN BLOOD 10 mg/dL (9-23)
[2023-07-31 06:01] LABS: ALANINE AMINOTRANSFERASE < 7 IU/L (10-49); ALBUMIN 3.4 g/dL (3.2-4.8); ASPARTATE AMINOTRANSFERASE 10 IU/L (<34); BILIRUBIN TOTAL 0.6 mg/dL (0.1-1.0); PROTEIN TOTAL 5.5 g/dL (6.0-8.3)
[2023-07-31 06:05] LABS: HEMATOCRIT. 28.4 % (36.0-48.0); HEMOGLOBIN. 8.7 g/dL (12.0-16.0); LYMPHOCYTES % 15.2 % (20.0-50.0); MEAN CORPUSCULAR HEMOGLOBIN 24.5 pg (28.0-32.0); MEAN CORPUSCULAR HGB CONC 30.7 g/dL (31.0-37.0); MEAN CORPUSCULAR VOLUME 79.9 fL (81.0-99.0); MEAN PLATELET VOLUME 10.1 fl (7.4-10.4); MONOCYTES % 7.4 % (2.0-8.0); NEUTROPHILS % 77.4 % (40.0-76.0); PLATELET 175 x1000/uL (130-400); RED BLOOD CELL COUNT 3.55 mill/uL (4.2-5.4); RED CELL DISTRIBUTION WIDTH 24.6 % (11.6-14.6)
[2023-07-31 06:32] LABS: DIFFERENTIAL COMMENT 1
[2023-07-31 06:33] LABS: ADD RBC MORPHOLOGY YES
[2023-07-31 14:08] LABS: ANISOCYTOSIS 4+; HYPOCHROMASIA 1+; MICROCYTOSIS 1+; PLATELET ESTIMATE NORMAL
[2023-08-01] VITALS (16 sets, daily range): BP systolic 95–143; BP diastolic 49–77; PULSE 74–89; RESP 13–32; TEMP 96.5–98.2; O2SAT 99–100
[2023-08-01 10:06] LABS: BASOPHILS % 0.3 % (0.0-2.0); EOSINOPHILS % 0.7 % (0.0-5.0); HEMATOCRIT. 27.7 % (36.0-48.0); HEMOGLOBIN. 8.5 g/dL (12.0-16.0); LYMPHOCYTES % 11.2 % (20.0-50.0); MEAN CORPUSCULAR HEMOGLOBIN 24.8 pg (28.0-32.0); MEAN CORPUSCULAR HGB CONC 30.7 g/dL (31.0-37.0); MEAN CORPUSCULAR VOLUME 80.6 fL (81.0-99.0); MEAN PLATELET VOLUME 9.4 fl (7.4-10.4); MONOCYTES % 9.3 % (2.0-8.0); NEUTROPHILS % 78.5 % (40.0-76.0); PLATELET 184 x1000/uL (130-400); RED BLOOD CELL COUNT 3.44 mill/uL (4.2-5.4); RED CELL DISTRIBUTION WIDTH 24.8 % (11.6-14.6); WHITE BLOOD COUNT 10.7 x1000/uL (4.5-11.0)
[2023-08-01 10:12] LABS: CHLORIDE 103 mEq/L (98-107); POTASSIUM 4.2 mEq/L (3.5-5.1); SODIUM 134 mEq/L (136-145)
[2023-08-01 10:13] LABS: CARBON DIOXIDE 26 mEq/L (21-32)
[2023-08-01 10:14] LABS: CALCIUM 9.1 mg/dL (8.7-10.4)
[2023-08-01 10:16] LABS: DIFFERENTIAL COMMENT 1
[2023-08-01 10:17] LABS: ADD RBC MORPHOLOGY NO
[2023-08-01 10:18] LABS: CREATININE 0.8 mg/dL (0.6-1.0); GLUCOSE 109 mg/dL (70-105); UREA NITROGEN BLOOD 18 mg/dL (9-23)
[2023-08-01 14:41] LABS: IRON 20 ug/dL (50-170)
[2023-08-01 14:44] LABS: TOTAL IRON BINDING CAPACITY 300 ug/dl (250-425)
[2023-08-01 14:47] LABS: FERRITIN 29 ng/mL (10-291); VITAMIN B12 SERUM 705 pg/mL (211-911)
[2023-08-01] MEDS: DOCUSATE SODIUM 250MG CAPSULE PO SCH (15:45)
[2023-08-01] MEDS: FERROUS SULFATE 325MG TABLET PO SCH (17:37)
[2023-08-02] VITALS (16 sets, daily range): BP systolic 103–182; BP diastolic 59–90; PULSE 75–99; RESP 8–23; TEMP 96.8–98.5; O2SAT 98–100
[2023-08-02 06:06] LABS: BASOPHILS % 0.4 % (0.0-2.0); EOSINOPHILS % 2.3 % (0.0-5.0); HEMATOCRIT. 29.6 % (36.0-48.0); HEMOGLOBIN. 9.2 g/dL (12.0-16.0); LYMPHOCYTES % 17.4 % (20.0-50.0); MEAN CORPUSCULAR HEMOGLOBIN 24.9 pg (28.0-32.0); MEAN CORPUSCULAR HGB CONC 30.9 g/dL (31.0-37.0); MEAN CORPUSCULAR VOLUME 80.6 fL (81.0-99.0); MEAN PLATELET VOLUME 9.9 fl (7.4-10.4); NEUTROPHILS % 69.9 % (40.0-76.0); PLATELET 184 x1000/uL (130-400); RED BLOOD CELL COUNT 3.67 mill/uL (4.2-5.4); RED CELL DISTRIBUTION WIDTH 25.1 % (11.6-14.6); WHITE BLOOD COUNT 9.3 x1000/uL (4.5-11.0)
[2023-08-02 06:11] LABS: CHLORIDE 104 mEq/L (98-107); POTASSIUM 4.5 mEq/L (3.5-5.1); SODIUM 135 mEq/L (136-145)
[2023-08-02 06:12] LABS: CARBON DIOXIDE 26 mEq/L (21-32)
[2023-08-02 06:13] LABS: CALCIUM 9.1 mg/dL (8.7-10.4)
[2023-08-02 06:17] LABS: CREATININE 0.7 mg/dL (0.6-1.0); GLUCOSE 131 mg/dL (70-105)
[2023-08-02 06:18] LABS: UREA NITROGEN BLOOD 13 mg/dL (9-23)
[2023-08-02 06:19] LABS: ALANINE AMINOTRANSFERASE < 7 IU/L (10-49); ALBUMIN 3.3 g/dL (3.2-4.8); ASPARTATE AMINOTRANSFERASE 8 IU/L (<34)
[2023-08-02 06:20] LABS: BILIRUBIN TOTAL 0.5 mg/dL (0.1-1.0); PROTEIN TOTAL 5.4 g/dL (6.0-8.3)
[2023-08-02 07:11] LABS: DIFFERENTIAL COMMENT 1
[2023-08-02] MEDS ORDERED: NALOXONE HCL 0.4MG/ML VIAL IV PRN (15:30)
[2023-08-02] MEDS: HYDROCODONE/ACETAMINOPHEN 5/325MG TABLET PO PRN (15:33)
[2023-08-02] MEDS: SENNOSIDES/DOCUSATE SOD 8.6/50MG TABLET PO NR (18:24)
[2023-08-02] MEDS: LACTULOSE 20G/30ML UDC PO NR (21:54)
[2023-08-02] MEDS: DILTIAZEM HCL 60MG TABLET PO SCH (21:54)
[2023-08-03] VITALS (16 sets, daily range): BP systolic 130–164; BP diastolic 62–86; PULSE 88–101; RESP 13–21; TEMP 97.7–98.3; O2SAT 100
[2023-08-03 07:23] LABS: BASOPHILS % 0.4 % (0.0-2.0); EOSINOPHILS % 2.3 % (0.0-5.0); HEMATOCRIT. 27.4 % (36.0-48.0); HEMOGLOBIN. 8.3 g/dL (12.0-16.0); LYMPHOCYTES % 17.2 % (20.0-50.0); MEAN CORPUSCULAR HEMOGLOBIN 24.7 pg (28.0-32.0); MEAN CORPUSCULAR HGB CONC 30.4 g/dL (31.0-37.0); MEAN CORPUSCULAR VOLUME 81.2 fL (81.0-99.0); MEAN PLATELET VOLUME 10.4 fl (7.4-10.4); MONOCYTES % 11.2 % (2.0-8.0); NEUTROPHILS % 68.9 % (40.0-76.0); PLATELET 143 x1000/uL (130-400); RED BLOOD CELL COUNT 3.37 mill/uL (4.2-5.4); RED CELL DISTRIBUTION WIDTH 24.6 % (11.6-14.6); WHITE BLOOD COUNT 6.1 x1000/uL (4.5-11.0)
[2023-08-03 07:25] LABS: DIFFERENTIAL COMMENT 1
[2023-08-03 07:29] LABS: CHLORIDE 101 mEq/L (98-107); POTASSIUM 5.2 mEq/L (3.5-5.1); SODIUM 132 mEq/L (136-145)
[2023-08-03 07:30] LABS: CALCIUM 8.7 mg/dL (8.7-10.4); CARBON DIOXIDE 29 mEq/L (21-32)
[2023-08-03 07:35] LABS: CREATININE 0.6 mg/dL (0.6-1.0); GLUCOSE 279 mg/dL (70-105)
[2023-08-03 07:36] LABS: UREA NITROGEN BLOOD 11 mg/dL (9-23)
[2023-08-03 07:37] LABS: ALANINE AMINOTRANSFERASE < 7 IU/L (10-49); ASPARTATE AMINOTRANSFERASE 9 IU/L (<34)
[2023-08-03 07:38] LABS: BILIRUBIN TOTAL 0.4 mg/dL (0.1-1.0); PROTEIN TOTAL 4.8 g/dL (6.0-8.3)
[2023-08-03 09:10] LABS: FOLATE HEMATOCRIT 28.5 % (34.0-46.6)
[2023-08-03] MEDS: POLYETHYLENE GLYCOL 3350 (17GM) 1 DOSE PACK PO SCH (09:24)
[2023-08-04] VITALS (12 sets, daily range): BP systolic 116–171; BP diastolic 54–123; PULSE 80–106; RESP 11–28; TEMP 97.8–99.1
[2023-08-04 05:32] LABS: BASOPHILS % 0.7 % (0.0-2.0); EOSINOPHILS % 1.5 % (0.0-5.0); HEMATOCRIT. 27.1 % (36.0-48.0); HEMOGLOBIN. 8.5 g/dL (12.0-16.0); LYMPHOCYTES % 17.5 % (20.0-50.0); MEAN CORPUSCULAR HGB CONC 31.2 g/dL (31.0-37.0); MEAN CORPUSCULAR VOLUME 80.2 fL (81.0-99.0); MEAN PLATELET VOLUME 9.6 fl (7.4-10.4); MONOCYTES % 8.2 % (2.0-8.0); NEUTROPHILS % 72.1 % (40.0-76.0); PLATELET 142 x1000/uL (130-400); RED BLOOD CELL COUNT 3.38 mill/uL (4.2-5.4); RED CELL DISTRIBUTION WIDTH 24.8 % (11.6-14.6); WHITE BLOOD COUNT 7.8 x1000/uL (4.5-11.0)
[2023-08-04 05:54] LABS: CHLORIDE 99 mEq/L (98-107); POTASSIUM 3.9 mEq/L (3.5-5.1); SODIUM 138 mEq/L (136-145)
[2023-08-04 05:55] LABS: CARBON DIOXIDE 31 mEq/L (21-32)
[2023-08-04 05:56] LABS: CALCIUM 9.1 mg/dL (8.7-10.4)
[2023-08-04 06:00] LABS: CREATININE 0.6 mg/dL (0.6-1.0); GLUCOSE 147 mg/dL (70-105); UREA NITROGEN BLOOD 10 mg/dL (9-23)
[2023-08-04 06:01] LABS: ALANINE AMINOTRANSFERASE < 7 IU/L (10-49)
[2023-08-04 06:02] LABS: ALBUMIN 3.1 g/dL (3.2-4.8); ASPARTATE AMINOTRANSFERASE 11 IU/L (<34)
[2023-08-04 06:03] LABS: BILIRUBIN TOTAL 0.4 mg/dL (0.1-1.0); PROTEIN TOTAL 4.9 g/dL (6.0-8.3)
[2023-08-04 06:38] LABS: DIFFERENTIAL COMMENT 1
[2023-08-05] VITALS (12 sets, daily range): BP systolic 111–147; BP diastolic 37–75; PULSE 74–91; RESP 12–21; TEMP 97.3–98.9
[2023-08-05 06:08] LABS: BASOPHILS % 0.7 % (0.0-2.0); CARBON DIOXIDE 30 mEq/L (21-32); CHLORIDE 98 mEq/L (98-107); EOSINOPHILS % 1.7 % (0.0-5.0); HEMATOCRIT. 24.8 % (36.0-48.0); HEMOGLOBIN. 7.6 g/dL (12.0-16.0); LYMPHOCYTES % 17.7 % (20.0-50.0); MEAN CORPUSCULAR HEMOGLOBIN 24.6 pg (28.0-32.0); MEAN CORPUSCULAR HGB CONC 30.7 g/dL (31.0-37.0); MEAN CORPUSCULAR VOLUME 80.2 fL (81.0-99.0); MEAN PLATELET VOLUME 10.4 fl (7.4-10.4); MONOCYTES % 7.6 % (2.0-8.0); NEUTROPHILS % 72.3 % (40.0-76.0); PLATELET 134 x1000/uL (130-400); POTASSIUM 4.4 mEq/L (3.5-5.1); RED BLOOD CELL COUNT 3.09 mill/uL (4.2-5.4); RED CELL DISTRIBUTION WIDTH 24.6 % (11.6-14.6); SODIUM 134 mEq/L (136-145); WHITE BLOOD COUNT 7.4 x1000/uL (4.5-11.0)
[2023-08-05 06:09] LABS: CALCIUM 8.7 mg/dL (8.7-10.4)
[2023-08-05 06:14] LABS: CREATININE 0.6 mg/dL (0.6-1.0); GLUCOSE 210 mg/dL (70-105); UREA NITROGEN BLOOD 12 mg/dL (9-23)
[2023-08-05 06:15] LABS: ALANINE AMINOTRANSFERASE < 7 IU/L (10-49); ALBUMIN 2.9 g/dL (3.2-4.8)
[2023-08-05 06:16] LABS: ASPARTATE AMINOTRANSFERASE 9 IU/L (<34); BILIRUBIN TOTAL 0.3 mg/dL (0.1-1.0); DIFFERENTIAL COMMENT 1; PROTEIN TOTAL 4.7 g/dL (6.0-8.3)
[2023-08-05 14:11] LABS: FOLATE RBC 1396 ng/mL (>498)
[2023-08-06] VITALS (11 sets, daily range): BP systolic 110–149; BP diastolic 45–118; PULSE 73–96; RESP 10–23; TEMP 97.1–98.2
[2023-08-06 05:06] LABS: CARBON DIOXIDE 29 mEq/L (21-32); CHLORIDE 100 mEq/L (98-107); POTASSIUM 4.4 mEq/L (3.5-5.1); SODIUM 137 mEq/L (136-145)
[2023-08-06 05:08] LABS: CALCIUM 8.9 mg/dL (8.7-10.4)
[2023-08-06 05:12] LABS: CREATININE 0.6 mg/dL (0.6-1.0); GLUCOSE 106 mg/dL (70-105); UREA NITROGEN BLOOD 11 mg/dL (9-23)
[2023-08-06 05:19] LABS: EOSINOPHILS % 1.6 % (0.0-5.0); HEMATOCRIT. 24.5 % (36.0-48.0); HEMOGLOBIN. 7.5 g/dL (12.0-16.0); LYMPHOCYTES % 20.6 % (20.0-50.0); MEAN CORPUSCULAR HEMOGLOBIN 25.2 pg (28.0-32.0); MEAN CORPUSCULAR HGB CONC 30.7 g/dL (31.0-37.0); MEAN PLATELET VOLUME 10.2 fl (7.4-10.4); MONOCYTES % 9.2 % (2.0-8.0); NEUTROPHILS % 67.6 % (40.0-76.0); PLATELET 130 x1000/uL (130-400); RED BLOOD CELL COUNT 2.99 mill/uL (4.2-5.4); WHITE BLOOD COUNT 6.6 x1000/uL (4.5-11.0)
[2023-08-06 06:52] LABS: DIFFERENTIAL COMMENT 1
[2023-08-06 06:53] LABS: ADD RBC MORPHOLOGY NO
[2023-08-06] MEDS ORDERED: DOCUSATE SODIUM 250MG CAPSULE PO PRN (09:00)
[2023-08-06] MEDS: LACTULOSE 20G/30ML UDC PO NR (15:18)
[2023-08-06] MEDS: DOCUSATE SODIUM 250MG CAPSULE PO SCH (18:52)
[2023-08-07] VITALS (7 sets, daily range): BP systolic 93–154; BP diastolic 51–100; PULSE 70–91; RESP 12–21; TEMP 97.1–99.1
[2023-08-07 06:44] LABS: CALCIUM 9.1 mg/dL (8.7-10.4); CHLORIDE 100 mEq/L (98-107); POTASSIUM 4.2 mEq/L (3.5-5.1); SODIUM 136 mEq/L (136-145)
[2023-08-07 06:45] LABS: CARBON DIOXIDE 28 mEq/L (21-32)
[2023-08-07 06:46] LABS: BASOPHILS % 1.6 % (0.0-2.0); EOSINOPHILS % 2.1 % (0.0-5.0); HEMATOCRIT. 23.9 % (36.0-48.0); HEMOGLOBIN. 7.4 g/dL (12.0-16.0); LYMPHOCYTES % 20.2 % (20.0-50.0); MEAN CORPUSCULAR HEMOGLOBIN 25.3 pg (28.0-32.0); MEAN CORPUSCULAR HGB CONC 30.9 g/dL (31.0-37.0); MEAN PLATELET VOLUME 9.9 fl (7.4-10.4); MONOCYTES % 9.1 % (2.0-8.0); PLATELET 122 x1000/uL (130-400); RED BLOOD CELL COUNT 2.92 mill/uL (4.2-5.4); RED CELL DISTRIBUTION WIDTH 24.8 % (11.6-14.6); WHITE BLOOD COUNT 6.3 x1000/uL (4.5-11.0)
[2023-08-07 06:50] LABS: CREATININE 0.5 mg/dL (0.6-1.0); GLUCOSE 100 mg/dL (70-105); UREA NITROGEN BLOOD 10 mg/dL (9-23)
[2023-08-07 06:55] LABS: ADD RBC MORPHOLOGY NO; DIFFERENTIAL COMMENT 1
[2023-08-07] MEDS: BISACODYL 10MG SUPP PR NR (10:48)
[2023-08-07] MEDS: NA PHOS,M-B/NA PHOS,DI-BA ENEMA 118ML PR NR (17:37)
[2023-08-07] MEDS: IOHEXOL-350 100 ML BOTTLE ONE (19:58)
[2023-08-07] MEDS: LIDOCAINE HCL 1% 10 MG/ML 10ML VIAL ONE (19:58)
[2023-08-07] MEDS: HYDROCODONE/ACETAMINOPHEN 5/325MG TABLET PO PRN (23:06)
[2023-08-08] VITALS (11 sets, daily range): BP systolic 119–155; BP diastolic 54–97; PULSE 79–86; RESP 16–20; TEMP 97.2–98.4
[2023-08-08 06:50] LABS: CARBON DIOXIDE 29 mEq/L (21-32); CHLORIDE 103 mEq/L (98-107); POTASSIUM 4.2 mEq/L (3.5-5.1); SODIUM 137 mEq/L (136-145)
[2023-08-08 06:52] LABS: CALCIUM 9.1 mg/dL (8.7-10.4)
[2023-08-08 06:53] LABS: BASOPHILS % 0.8 % (0.0-2.0); EOSINOPHILS % 1.4 % (0.0-5.0); HEMATOCRIT. 26.5 % (36.0-48.0); HEMOGLOBIN. 8.3 g/dL (12.0-16.0); LYMPHOCYTES % 15.1 % (20.0-50.0); MEAN CORPUSCULAR HEMOGLOBIN 25.7 pg (28.0-32.0); MEAN CORPUSCULAR HGB CONC 31.3 g/dL (31.0-37.0); MEAN CORPUSCULAR VOLUME 82.1 fL (81.0-99.0); MEAN PLATELET VOLUME 10.1 fl (7.4-10.4); MONOCYTES % 8.4 % (2.0-8.0); NEUTROPHILS % 74.3 % (40.0-76.0); PLATELET 120 x1000/uL (130-400); RED BLOOD CELL COUNT 3.23 mill/uL (4.2-5.4); RED CELL DISTRIBUTION WIDTH 23.3 % (11.6-14.6); WHITE BLOOD COUNT 6.8 x1000/uL (4.5-11.0)
[2023-08-08 06:56] LABS: CREATININE 0.6 mg/dL (0.6-1.0); GLUCOSE 108 mg/dL (70-105)
[2023-08-08 07:01] LABS: DIFFERENTIAL COMMENT 1
[2023-08-08 07:46] LABS: UREA NITROGEN BLOOD 14 mg/dL (9-23)
[2023-08-08] MEDS: ASCORBIC ACID 500 MG TABLET PO SCH (11:31)
[2023-08-08] MEDS ORDERED: NALOXONE HCL 0.4MG/ML VIAL IV PRN (12:15)
[2023-08-08] MEDS: LACTULOSE 20G/30ML UDC PO NR (16:26)
[2023-08-09] VITALS (9 sets, daily range): BP systolic 109–157; BP diastolic 50–115; PULSE 70–88; RESP 11–20; TEMP 97.6–98.1; O2SAT 18
[2023-08-09 06:49] LABS: BASOPHILS % 1.1 % (0.0-2.0); EOSINOPHILS % 2.1 % (0.0-5.0); HEMATOCRIT. 25.8 % (36.0-48.0); LYMPHOCYTES % 18.9 % (20.0-50.0); MEAN CORPUSCULAR HEMOGLOBIN 25.6 pg (28.0-32.0); MEAN CORPUSCULAR HGB CONC 30.9 g/dL (31.0-37.0); MEAN CORPUSCULAR VOLUME 82.9 fL (81.0-99.0); MEAN PLATELET VOLUME 10.8 fl (7.4-10.4); MONOCYTES % 9.6 % (2.0-8.0); NEUTROPHILS % 68.3 % (40.0-76.0); PLATELET 119 x1000/uL (130-400); RED BLOOD CELL COUNT 3.11 mill/uL (4.2-5.4); RED CELL DISTRIBUTION WIDTH 23.7 % (11.6-14.6); WHITE BLOOD COUNT 6.4 x1000/uL (4.5-11.0)
[2023-08-09 07:17] LABS: CHLORIDE 104 mEq/L (98-107); POTASSIUM 4.2 mEq/L (3.5-5.1); SODIUM 138 mEq/L (136-145)
[2023-08-09 07:18] LABS: CALCIUM 9.1 mg/dL (8.7-10.4); CARBON DIOXIDE 29 mEq/L (21-32)
[2023-08-09 07:23] LABS: CREATININE 0.6 mg/dL (0.6-1.0); GLUCOSE 95 mg/dL (70-105); UREA NITROGEN BLOOD 14 mg/dL (9-23)
[2023-08-09 07:28] LABS: ADD RBC MORPHOLOGY YES; DIFFERENTIAL COMMENT 1
[2023-08-09 16:03] LABS: ANISOCYTOSIS 3+; HYPOCHROMASIA 1+; PLATELET ESTIMATE SLIGHTLY DECREASED
== END 2023-08-09 17:28 | DRG 377 ==
LOC: ER 11:19 → 5EST 12:40 → EDBEDREQ 12:43 → EDBEDREQSVC 20:19
PROVIDERS: ADMIT Internal Medicine; ATTEND Internal Medicine
PROC: 30233N1 Transfusion of Nonautologous Red Blood Cells into Peripheral Vein, Percutaneous Approach (ICD-10-PCS; 2023-07-28)
PROC: 02HV33Z Insertion of Infusion Device into Superior Vena Cava, Percutaneous Approach (ICD-10-PCS; 2023-07-29)
PROC: B548ZZA Ultrasonography of Superior Vena Cava, Guidance (ICD-10-PCS; 2023-07-29)
PROC: 5A09357 Assistance with Respiratory Ventilation, Less than 24 Consecutive Hours, Continuous Positive Airway Pressure (ICD-10-PCS; principal; 2023-07-30)
DX: K55.21 Angiodysplasia of colon with hemorrhage (principal); I50.23 Acute on chronic systolic (congestive) heart failure; D50.9 Iron deficiency anemia, unspecified; I11.0 Hypertensive heart disease with heart failure; I48.0 Paroxysmal atrial fibrillation; K44.9 Diaphragmatic hernia without obstruction or gangrene; K29.70 Gastritis, unspecified, without bleeding; E87.6 Hypokalemia; J44.9 Chronic obstructive pulmonary disease, unspecified; K59.00 Constipation, unspecified; I35.0 Nonrheumatic aortic (valve) stenosis; E78.5 Hyperlipidemia, unspecified; Z20.822 Contact with and (suspected) exposure to COVID-19; Z90.3 Acquired absence of stomach [part of]; K57.90 Diverticulosis of intestine, part unspecified, without perforation or abscess without bleeding; Z85.3 Personal history of malignant neoplasm of breast; Z86.718 Personal history of other venous thrombosis and embolism; Z98.84 Bariatric surgery status; Z95.828 Presence of other vascular implants and grafts; Z90.11 Acquired absence of right breast and nipple
CPT/HCPCS: 36415; 36573; 36600; 71045; 74018; 74174; 80048; 80053; 82375; 82607; 82728; 82747; 82805; 83540; 83550; 83735; 84132; 84484; 85014; 85018; 85025; 85044; 86850; 86900; 86920; 87426; 93005; 93971; 94640; 94660; 97166; 99291; A6261; C1725; C1893; C9113; J1200; J2270; J2405; J2920; J3480; J3490; J7030; J7050; J7060; J7626; P9016; Q9967